=== PATIENT | male | born 1980 | race Caucasian/White ===

== ENCOUNTER 2016-10-16 11:33 | Emergency (ER) | payer SELFPAY | END 2016-10-16 12:27 | disposition home or self-care (01) | LOC: NAV ERS 11:33 | DX: H70.91 Unspecified mastoiditis, right ear (principal); H60.91 Unspecified otitis externa, right ear; F17.210 Nicotine dependence, cigarettes, uncomplicated | CPT/HCPCS: 99283 ==

== ENCOUNTER 2017-02-23 07:58 | Emergency (ER) | payer SELFPAY ==
[2017-02-23 08:48] LABS: #Basophils 0.1 thou/uL (0.0-0.2); #Eosinphils 0.1 thou/uL (0.0-0.7); #Lymphocytes 1.6 thou/uL (1.20-3.40); #Monocytes 1.3 thou/uL (0.11-0.59); #Neutrophils 15.3 thou/uL (1.40-6.50); %Basophils 0.5 % (0.0-1.0); %Eosinophils 0.8 % (0.0-10.0); %Lymphocytes 8.8 % (21.0-51.0); %Monocytes 6.8 % (0.0-10.0); %Neutrophils 83.2 % (42.0-75.0); Hemoglobin 15.7 g/dL (14.0-18.0); Mean Corpuscular HGB CONC 32.3 g/dL (32.0-36.0); Mean Corpuscular Hemoglobin 29.4 pg (27.0-31.0); Mean Corpuscular Volume 91.3 fl (80.0-94.0); Platelet Count 260 thou/uL (130-400); Red Blood Cell (RBC) Count 5.33 mill/uL (4.70-6.10); White Blood Cell (WBC) Count 18.4 thou/uL (4.8-10.8)
[2017-02-23] MEDS ORDERED: Ketorolac Tromethamine 30 MG/ML VIAL ONE (08:57)
[2017-02-23] MEDS ORDERED: Ondansetron HCl/PF 4 MG/2 ML Vial ONE (08:57)
[2017-02-23] MEDS ORDERED: Sodium Chloride 0.9% 1,000 ML ONE (08:57)
[2017-02-23 09:01] LABS: ALT (SGPT) Less than 3 U/L (8-55); AST (SGOT) 18 U/L (5-34); Albumin Less than 1.5 g/dL (3.5-5.0); Alkaline Phosphatase 90 U/L (40-150); Anion Gap 14 mmol/L (10-20); BUN (Urea Nitrogen) 9 mg/dL (8.9-20.6); Bilirubin, Total 0.8 mg/dL (0.2-1.2); CK (CPK) 135 U/L (30-200); Calc. Creatinine Clearance 0 mL/min (70-130); Calcium 9.2 mg/dL (7.8-10.44); Carbon Dioxide 22 mmol/L (22-29); Chloride 105 mmol/L (98-107); Estimated GFR-MDRD Greater than 90; Glucose 106 mg/dL (70-105); Potassium 3.7 mmol/L (3.5-5.1); Protein, Total 6.9 g/dL (6.0-8.3); Sodium 137 mmol/L (136-145)
--- NOTE | 2017-02-23 09:11 | RAD ---
LEFT FOREARM 2 VIEWS: HISTORY: Redness and swelling to the left arm. History of an insect bite. FINDINGS: A small radiopaque density is seen on the volar side of the wrist on the lateral view not definitely visualized on the PA projection. I am not certain whether this is artifactual. There is no bony per iosteal change of the radius or ulnar to suggest any type of osteomyelitis. No air within the soft t issues. 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 There is a possible B-B pellet lodged within the soft tissues adjacent to the distal humerus seen on the lateral view only. IMPRESSION: No signs of osteomyelitis. There appears to be soft tissue swelling. No signs of any definite air w ithin the soft tissue. Other findings as discussed above. POS: DMITRY
[2017-02-23] MEDS ORDERED: Piperacillin/Tazobactam 3.375 GM VIAL ONE (09:45)
== END 2017-02-23 10:04 | disposition short-term general hospital (02) ==
LOC: NAV ERS 07:58
DX: L03.114 Cellulitis of left upper limb (principal); F17.210 Nicotine dependence, cigarettes, uncomplicated
CPT/HCPCS: 80053; 82550; 83605; 85025; 87040; 96361; 96374; 96375; J1885; J2405; J2543; J7050

== ENCOUNTER 2018-07-05 04:59 | Emergency (ER) | payer SELFPAY ==
[2018-07-05] MEDS ORDERED: Morphine 4 MG/ML VIAL ONE (05:24)
[2018-07-05] MEDS ORDERED: Ondansetron PF 4 MG/2 ML Vial ONE (05:24)
[2018-07-05 05:27] LABS: #Basophils 0.1 thou/uL (0.0-0.2); #Eosinphils 0.2 thou/uL (0.0-0.7); #Lymphocytes 2.5 thou/uL (1.20-3.40); #Monocytes 0.7 thou/uL (0.11-0.59); #Neutrophils 8.1 thou/uL (1.40-6.50); %Basophils 0.8 % (0.0-1.0); %Lymphocytes 21.5 % (21.0-51.0); %Monocytes 5.7 % (0.0-10.0); Hemoglobin 13.9 g/dL (14.0-18.0); Mean Corpuscular HGB CONC 32.9 g/dL (32.0-36.0); Mean Corpuscular Hemoglobin 28.3 pg (27.0-31.0); Mean Corpuscular Volume 86.1 fL (78.0-98.0); Mean Platelet Volume 5.9 fL (7.4-10.4); Platelet Count 314 thou/uL (130-400); Red Blood Cell (RBC) Count 4.92 mill/uL (4.70-6.10); White Blood Cell (WBC) Count 11.6 thou/uL (4.8-10.8)
[2018-07-05 05:31] LABS: MDiff Complete? YES; Manual Diff?? NO
[2018-07-05] MEDS ORDERED: Lidocaine Viscous Sol 2% 15 ml UD Cup ONE (05:34)
[2018-07-05] MEDS ORDERED: Mag-Al Plus 1200 MG/1200 MG/120 MG/30 ML UDCUP ONE (05:34)
[2018-07-05] MEDS ORDERED: Pantoprazole 40 MG VIAL ONE (05:34)
[2018-07-05 05:45] LABS: ALT (SGPT) 31 U/L (8-55); AST (SGOT) 28 U/L (5-34); Albumin 4.3 g/dL (3.5-5.0); Alkaline Phosphatase 107 U/L (40-150); Anion Gap 13 mmol/L (10-20); BUN (Urea Nitrogen) 15 mg/dL (8.9-20.6); Bilirubin, Total 0.7 mg/dL (0.2-1.2); CK (CPK) 329 U/L (30-200); Calc. Creatinine Clearance 0 mL/min (70-130); Calcium 9.7 mg/dL (7.8-10.44); Carbon Dioxide 25 mmol/L (22-29); Chloride 107 mmol/L (98-107); Estimated GFR-MDRD 81; Globulin 2.9 g/dL (2.4-3.5); Glucose 164 mg/dL (70-105); Lipase 14 U/L (8-78); Potassium 3.6 mmol/L (3.5-5.1); Protein, Total 7.2 g/dL (6.0-8.3); Sodium 141 mmol/L (136-145)
[2018-07-05] MEDS ORDERED: Sodium Chloride 0.9% 1,000 ML ONE (06:20)
[2018-07-05] MEDS ORDERED: Ketorolac Tromethamine 30 MG/ML VIAL ONE (06:41)
[2018-07-05 06:48] LABS: Bilirubin Small (Negative); Blood, Urine Large (Negative); Clarity Slightly Cloudy (Clear); Glucose, Urine (Dipstick) Negative (Negative); Leukocyte Negative (Negative); Nitrite Negative (Negative); Protein, Urine (Dipstick) 30 mg/dL (Neg-Trace); Urobilinogen 0.2 mg/dL (0.2-1.0); pH, Urine 5.5 (5.0-9.0)
[2018-07-05 06:50] LABS: Bacteria/HPF None Seen HPF (None Seen); Specific Gravity, Urine 1.034 (1.002-1.036); Squamous Epithelial 0-3 HPF (0-3); WBC/HPF 0-3 HPF (0-3)
[2018-07-05 06:56] LABS: Cocaine Metabolite Screen Not Detected (NotDetected); Phencyclidine (PCP) Not Detected (NotDetected); THC/Cannabinoid Screen Detected (NotDetected)
[2018-07-05 06:57] LABS: Amphetamine Detected (NotDetected); Barbiturates Screen Not Detected (NotDetected); Benzodiazepine Screen Detected (NotDetected); Medtox Control Line Valid? VALID (VALID); Methadone Not Detected (NotDetected); Methamphetamine Detected (NotDetected); Opiate Screen Detected (NotDetected); Oxycodone Screen Not Detected (NotDetected); Tricyclic Screen Not Detected (NotDetected)
--- NOTE | 2018-07-05 07:39 | CT ---
EXAM: CT Stone Protocol PROVIDED CLINICAL HISTORY: Abdominal pain COMPARISON: None FINDINGS: The visualized lung bases are free of significant opacity. There is right hydronephrosis and right hydroureter to the level of a 1 mm right UVJ calculus. No add itional urinary tract calculi are evident. The solid abdominal organs are suboptimally evaluated in the absence of IV contrast material but demo nstrate an otherwise unremarkable unenhanced CT appearance. There is no bowel dilatation, inflammatory fat stranding, free fluid or free air apparent. The appendix appears normal. Ovoid density within the right inguinal canal presumably reflects undescended testicle. Correlation w ith the physical exam recommended. IMPRESSION: 1. 1 mm obstructing right UVJ calculus. 2. Presumed right inguinal testicle.
--- NOTE | 2018-07-05 08:10 | RAD ---
ACUTE ABDOMINAL SERIES: Date: 07/05/18 INDICATION: Abdominal pain without trauma. FINDINGS: Lungs are clear. There is a healed deformity involving the left clavicle. Heart size is normal. No pl eural effusion is evident. No pneumoperitoneum is noted. Bowel gas pattern is nonspecific without ove rt evidence of obstruction. No acute osseous abnormality is noted. IMPRESSION: No acute cardiopulmonary abnormality. POS: BH
== END 2018-07-05 08:11 | disposition home or self-care (01) ==
LOC: NAV ERS 04:59
DX: N13.2 Hydronephrosis with renal and ureteral calculous obstruction (principal); F17.210 Nicotine dependence, cigarettes, uncomplicated
CPT/HCPCS: 36415; 74022; 74176; 80053; 80306; 81003; 81015; 82550; 83605; 83690; 84484; 85025; 93005; 96374; 96375; C9113; J1885; J2270; J2405; J7050

== ENCOUNTER 2023-04-12 07:59 | Emergency (ER) | payer SELFPAY | END 2023-04-12 09:05 | disposition home or self-care (01) | LOC: NAV ERS 07:59 | DX: M54.12 Radiculopathy, cervical region (principal); F17.210 Nicotine dependence, cigarettes, uncomplicated | CPT/HCPCS: 99283 ==